=== PATIENT | female | born 1970 | race Caucasian/White ===

== ENCOUNTER 2021-05-13 12:48 | Outpatient (CLI) | payer BC | END 2021-05-13 12:49 | disposition home or self-care (01) | LOC: SCSMRI 12:48 | PROVIDERS: ATTEND Nurse Practitioner Family | DX: F41.1 Generalized anxiety disorder (principal); G95.0 Syringomyelia and syringobulbia; R42 Dizziness and giddiness; R29.898 Other symptoms and signs involving the musculoskeletal system; R20.2 Paresthesia of skin; F32.9 Major depressive disorder, single episode, unspecified; R51.9 Headache, unspecified; R53.83 Other fatigue; Z78.9 Other specified health status; M50.321 Other cervical disc degeneration at C4-C5 level; Q06.4 Hydromyelia | CPT/HCPCS: 70551; 72141 ==